=== PATIENT | male | born 1940 | race Caucasian/White ===

== ENCOUNTER 2019-10-18 15:12 | Outpatient (CLI) | payer OTHER ==
--- NOTE | 2019-10-18 20:37 | RAD ---
CHEST: 10/18/19 A total of three views are provided. There are no prior films available for comparison. The lungs are mildly hyperexpanded. Some faint calcified plaques are seen involving the diaphragm. Th ere are also several vague patchy densities seen around the chest bilaterally that are most likely ca lcified pleural plaques elsewhere. No lobar consolidation or edema was seen. The heart size is normal . IMPRESSION: 1. Findings consistent with the history of asbestos exposure. If the patient has never had a CT of the thorax, or one recently, I would encourage an elective CT to be sure that there is no addition al pathology that cannot be seen on this film. 2. Hyperexpanded lungs but otherwise clear. Code T POS: HOME
== END 2019-10-18 15:13 | disposition home or self-care (01) ==
LOC: BURRAD 15:12
PROVIDERS: ATTEND Family Medicine
DX: Z77.090 Contact with and (suspected) exposure to asbestos (principal); J98.4 Other disorders of lung
CPT/HCPCS: 71046